=== PATIENT | female | born 1990 | race Hispanic/Latino ===

== ENCOUNTER 2022-03-25 14:46 | Inpatient (IN) | payer OTHER ==
[~2022-03-25] VITALS: Ht 157.5 cm; Wt 57.9 kg
[2022-03-25 14:59] VITALS: BP 119/74
[2022-03-25] MEDS ORDERED: STUACAP PO (15:01)
[2022-03-25] MEDS: BETAMETHASONE SOLUSPAN 6MG/ML 5ML VIAL (J0702 PER 3MG) IM SCH (16:17)
[2022-03-25 16:34] LABS: HEMATOCRIT 37.1 % (36.0-47.0); HEMOGLOBIN 12.8 g/dl (12.0-15.5); MEAN CORPUSCULAR HEMOGLOBIN 30.3 pg (27.0-33.0); MEAN CORPUSCULAR HGB CONC 34.5 g/dl (32.0-36.5); MEAN CORPUSCULAR VOLUME 87.9 fl (80.0-96.0); PLATELET COUNT, AUTOMATED 323 10^3/uL (150-450); RED BLOOD COUNT 4.22 10^6/uL (4.00-5.40); WHITE BLOOD COUNT 9.4 10^3/uL (4.0-10.0)
[2022-03-25 18:47] VITALS: BP 121/70
[2022-03-25 21:30] VITALS: BP 108/61
[2022-03-26] VITALS (7 sets, daily range): BP systolic 111–129; BP diastolic 71–76
[2022-03-26] MEDS ORDERED: LR 1,000 ML IV ONE (14:30)
[2022-03-26] MEDS ORDERED: LR 1,000 ML IV SCH (15:15)
[2022-03-26 15:51] LABS: HEMOGLOBIN A1c 4.8 %
[2022-03-26] MEDS: BETAMETHASONE SOLUSPAN 6MG/ML 5ML VIAL (J0702 PER 3MG) IM SCH (16:18)
[2022-05-02] MEDS ORDERED: ASPI1CHW2 PO (11:08)
== END 2022-03-26 19:34 | disposition home or self-care (01) | DRG 833 ==
LOC: M LDI 14:46
PROVIDERS: ADMIT Obstetrics & Gynecology; ATTEND Obstetrics & Gynecology
DX: O41.03X0 Oligohydramnios, third trimester, not applicable or unspecified (principal); O34.211 Maternal care for low transverse scar from previous cesarean delivery; Z3A.32 32 weeks gestation of pregnancy

== ENCOUNTER → 2022-03-29 | Outpatient (CLI) | payer OTHER ==
[~2022-03-29] MED LIST: STUACAP PO
== END ==
LOC: M WHC 12:54
PROVIDERS: ATTEND Obstetrics & Gynecology
DX: O36.5930 Maternal care for other known or suspected poor fetal growth, third trimester, not applicable or unspecified (principal); Z3A.33 33 weeks gestation of pregnancy

== ENCOUNTER → 2022-04-08 | Outpatient (CLI) | payer OTHER | LOC: M WHC 12:54 | PROVIDERS: ATTEND Obstetrics & Gynecology | DX: O36.5931 Maternal care for other known or suspected poor fetal growth, third trimester, fetus 1 (principal) ==

== ENCOUNTER → 2022-04-12 | Outpatient (CLI) | payer OTHER | LOC: M WHC 15:20 | PROVIDERS: ATTEND Obstetrics & Gynecology | DX: O36.5933 Maternal care for other known or suspected poor fetal growth, third trimester, fetus 3 (principal); Z3A.35 35 weeks gestation of pregnancy ==

== ENCOUNTER → 2022-04-15 | Outpatient (CLI) | payer OTHER | LOC: M WHC 13:23 | PROVIDERS: ATTEND Obstetrics & Gynecology | DX: O36.5933 Maternal care for other known or suspected poor fetal growth, third trimester, fetus 3 (principal); Z3A.35 35 weeks gestation of pregnancy ==

== ENCOUNTER → 2022-04-19 | Outpatient (CLI) | payer OTHER | LOC: M WHC 15:13 | PROVIDERS: ATTEND Obstetrics & Gynecology | DX: O36.5933 Maternal care for other known or suspected poor fetal growth, third trimester, fetus 3 (principal); Z3A.36 36 weeks gestation of pregnancy ==

== ENCOUNTER → 2022-04-22 | Outpatient (CLI) | payer OTHER | LOC: M WHC 13:21 | PROVIDERS: ATTEND Obstetrics & Gynecology | DX: O36.5933 Maternal care for other known or suspected poor fetal growth, third trimester, fetus 3 (principal); Z3A.36 36 weeks gestation of pregnancy ==

== ENCOUNTER → 2022-04-26 | Outpatient (CLI) | payer OTHER ==
[~2022-04-26] MED LIST changes: +ASPI1CHW2 PO
== END ==
LOC: M WHC 15:47
PROVIDERS: ATTEND Obstetrics & Gynecology
DX: O36.5933 Maternal care for other known or suspected poor fetal growth, third trimester, fetus 3 (principal); Z3A.37 37 weeks gestation of pregnancy

== ENCOUNTER → 2022-04-29 | Outpatient (CLI) | payer OTHER | LOC: M WHC 13:18 | PROVIDERS: ATTEND Obstetrics & Gynecology | DX: Z36.89 Encounter for other specified antenatal screening (principal); Z3A.37 37 weeks gestation of pregnancy ==

== ENCOUNTER 2022-05-03 08:57 | Inpatient (IN) | payer OTHER ==
[~2022-05-03] VITALS: Ht 157.5 cm; Wt 60.6 kg
[2022-05-03] MEDS ORDERED: ASPIRIN 81 MG CHEW TABLET PO SCH (09:00)
[2022-05-03] MEDS: PRENATAL VITAMINS CHEWABLE TABLET PO SCH (09:00)
[2022-05-03] MEDS ORDERED: LACTATED RINGER'S 1000 ML IV STA (09:01)
[2022-05-03] MEDS ORDERED: LR 1,000 ML IV SCH ×2 (09:05→10:00)
[2022-05-03] MEDS ORDERED: BICITRA 30ML SOLN UDC PO ONE ×2 (09:15→10:00)
[2022-05-03] MEDS ORDERED: ceFAZolin SOD 2 GM in IV 1 EA IV ONE ×3 (09:15→11:50)
[2022-05-03 09:33] VITALS: BP 135/83
[2022-05-03] MEDS ORDERED: HOME MED LIST COMPLETE! XX SCH (09:40)
[2022-05-03 09:43] LABS: HEMATOCRIT 38.1 % (36.0-47.0); HEMOGLOBIN 12.7 g/dl (12.0-15.5); MEAN CORPUSCULAR HEMOGLOBIN 29.7 pg (27.0-33.0); MEAN CORPUSCULAR HGB CONC 33.3 g/dl (32.0-36.5); PLATELET COUNT, AUTOMATED 294 10^3/uL (150-450); RED BLOOD COUNT 4.28 10^6/uL (4.00-5.40); WHITE BLOOD COUNT 7.6 10^3/uL (4.0-10.0)
[2022-05-03] MEDS ORDERED: LR 500 ML IV ONE (10:00)
[2022-05-03] MEDS ORDERED: OXYTOCIN 30 UNITS IN 0.9% NaCl 500ML IV BAG (J2590) As Ordered ONE ×2 (11:11→13:45)
[2022-05-03] MEDS ORDERED: MORPHINE PRES-FREE INJ 10 MG/10 ML VIAL As Ordered ONE (11:11)
[2022-05-03] MEDS ORDERED: BUPIVACAINE HCL 0.25% 10ML VIAL SC ONE (11:30)
[2022-05-03] MEDS ORDERED: PHENYLephrine 500MCG 5ML (100MCG/ML) SYRINGE As Ordered ONE (11:38)
[2022-05-03] MEDS ORDERED: GLYCOPYRROLATE INJ 0.2 MG/ML 2 ML VIAL As Ordered ONE (11:42)
[2022-05-03] MEDS ORDERED: LABETALOL 100MG/20ML VIAL As Ordered ONE (11:45)
[2022-05-03] MEDS ORDERED: ePHEDrine SULFATE 25 MG/5 ML(5MG/ML) SYRINGE As Ordered ONE (12:22)
[2022-05-03] MEDS ORDERED: propofoL 200 MG/20 ML VIAL As Ordered ONE (12:22)
[2022-05-03] MEDS ORDERED: ACETAMINOPHEN 1000MG 100ML IV BTL (OFIRMEV) (J0131 PER 10MG) As Ordered ONE (12:37)
[2022-05-03] MEDS ORDERED: KETOROLAC 60MG 2ML VIAL As Ordered ONE (12:37)
[2022-05-03 12:38] LABS: CORD GAS ABE A -6.7; CORD GAS HCO3 A 21.7 MEQ/L; CORD GAS O2 SAT A 32.9 %; CORD GAS PCO2 A 55.7 mmHg; CORD GAS PH A 7.209 UNITS; CORD GAS PO2 A 17.7 mmHg; CORD GAS SBC A 17.8 MEQ/L; CORD GAS TCO2 A 23.4 MEQ/L
[2022-05-03 12:40] LABS: CORD GAS ABE V -5.6; CORD GAS O2 SAT V 61.8 %; CORD GAS PCO2 V 44.7 mmHg; CORD GAS PH V 7.289 UNITS; CORD GAS PO2 V 26.3 mmHg; CORD GAS SBC V 19.1 MEQ/L; CORD GAS TCO2 V 22.3 MEQ/L
[2022-05-03] MEDS ORDERED: SIMETHICONE 80MG CHEW TAB PO PRN (13:30)
[2022-05-03] MEDS ORDERED: METOCLOPRAMIDE INJ 10MG/2ML VIAL (J2765 PER 1) IV PRN ×2 (13:30→15:00)
[2022-05-03] MEDS ORDERED: DOCUSATE SODIUM 100MG CAPSULE PO PRN (13:30)
[2022-05-03] MEDS ORDERED: ONDANSETRON 4MG 2ML VIAL IV PRN ×2 (13:30→15:00)
[2022-05-03] MEDS ORDERED: RHOGAM 300 MCG (1500 IU) INJ (J2790) IM SCH (13:30)
[2022-05-03] MEDS ORDERED: METHYLERGONOVINE MALEATE 0.2 MG/ML VIAL (J2210) IM PRN (13:30)
[2022-05-03] MEDS ORDERED: oxyCODONE 5MG TAB PO PRN ×3 (13:30→15:00)
[2022-05-03] MEDS ORDERED: OXYTOCIN DRIP 30 UNITS in IV 1 EA IV SCH (13:30)
[2022-05-03 15:00] VITALS: BP 134/73
[2022-05-03] MEDS ORDERED: diphenhydrAMINE 50MG/ML VIAL (J1200) IV PRN (15:00)
[2022-05-03] MEDS ORDERED: NALOXONE INJ 0.4MG/1ML VIAL (J2310 PER 1MG) IV PRN ×2 (15:00)
[2022-05-03] MEDS ORDERED: **NOTE PATIENT COMMENT** MISC XX SCH (15:00)
[2022-05-03] MEDS: SLF 3 ML SYR IV SCH ×2 (15:00→23:00)
[2022-05-03] MEDS ORDERED: fentaNYL 100 MCG/2 ML INJECTION IV PRN (15:00)
[2022-05-03 15:30] VITALS: BP 129/72
[2022-05-03 16:00] VITALS: BP 142/88
[2022-05-03 17:00] VITALS: BP 120/62
[2022-05-03 18:00] VITALS: BP 113/61
[2022-05-03] MEDS: LR 1,000 ML IV SCH (18:25)
[2022-05-03] MEDS: ACETAMINOPHEN 500 MG TAB PO SCH (18:25)
[2022-05-03] MEDS: KETOROLAC 30 MG/ML 1ML VIAL IV SCH (18:26)
[2022-05-04] MEDS: ACETAMINOPHEN 500 MG TAB PO SCH ×4 (01:09→18:12)
[2022-05-04] MEDS: KETOROLAC 30 MG/ML 1ML VIAL IV SCH ×2 (01:09→06:56)
[2022-05-04 02:00] VITALS: BP 106/67
[2022-05-04] MEDS: LR 1,000 ML IV SCH (02:02)
[2022-05-04 06:00] VITALS: BP 108/68
[2022-05-04] MEDS: PRENATAL VITAMINS CHEWABLE TABLET PO SCH (07:46)
[2022-05-04] MEDS: SLF 3 ML SYR IV SCH (07:47)
[2022-05-04 08:54] LABS: HEMATOCRIT 31.8 % (36.0-47.0); MEAN CORPUSCULAR HEMOGLOBIN 29.7 pg (27.0-33.0); MEAN CORPUSCULAR HGB CONC 32.7 g/dl (32.0-36.5); MEAN CORPUSCULAR VOLUME 90.9 fl (80.0-96.0); PLATELET COUNT, AUTOMATED 240 10^3/uL (150-450); WHITE BLOOD COUNT 6.7 10^3/uL (4.0-10.0)
[2022-05-04 09:00] LABS: HEMOGLOBIN 10.4 g/dl (12.0-15.5)
[2022-05-04] MEDS ORDERED: PRENATAL VITAMINS CHEWABLE TABLET PO SCH (09:00)
[2022-05-04 10:00] VITALS: BP 127/87
[2022-05-04 14:00] VITALS: BP 139/81
[2022-05-04] MEDS: IBUPROFEN 800 MG TAB PO SCH ×2 (15:27→22:50)
[2022-05-04 18:00] VITALS: BP 127/80
[2022-05-04 21:55] VITALS: BP 127/81
[2022-05-05] MEDS: ACETAMINOPHEN 500 MG TAB PO SCH ×2 (01:13→06:43)
[2022-05-05 02:05] VITALS: BP 136/82
[2022-05-05 06:03] VITALS: BP 133/86
[2022-05-05] MEDS: IBUPROFEN 800 MG TAB PO SCH (06:43)
[2022-05-05] MEDS ORDERED: IBUP80TA PO (06:58)
[2022-05-05] MEDS ORDERED: COLA100C5 PO (06:58)
[2022-05-05] MEDS ORDERED: ACET-683 PO (06:58)
[2022-05-05] MEDS ORDERED: OXYC-517 PO (06:58)
[2022-05-05] MEDS: PRENATAL VITAMINS CHEWABLE TABLET PO SCH (09:00)
[2022-05-05] MEDS ORDERED: MEASLES,MUMPS,RUBELLA VACCINE INJ (MMR-II) (90707) SC.IMMUN ONE (09:00)
== END 2022-05-05 11:25 | disposition home or self-care (01) | DRG 773 ==
LOC: M LDI 08:57 → M OBS 15:09
PROVIDERS: ADMIT Obstetrics & Gynecology; ATTEND Obstetrics & Gynecology
PROC: 10D00Z1 Extraction of Products of Conception, Low, Open Approach (ICD-10-PCS; principal; 2022-05-03 11:15)
DX: O34.211 Maternal care for low transverse scar from previous cesarean delivery (principal); Z37.0 Single live birth; Z3A.39 39 weeks gestation of pregnancy; O90.0 Disruption of cesarean delivery wound; O36.5930 Maternal care for other known or suspected poor fetal growth, third trimester, not applicable or unspecified